=== PATIENT | female | born 1965 | race Asian ===

== ENCOUNTER 2020-07-26 15:52 | Emergency (ER) | payer SELFPAY ==
--- NOTE | 2020-07-26 16:21 | ER Document Report ---
ED Medical Screen (RME) - General Chief Complaint: Vaginal Bleeding Stated Complaint: VAGINAL BLEEDING Time Seen by Provider: 07/26/20 16:15 - HPI Notes: 07/26/20 16:20 55-year-old female to the emergency department with daughter with complaints of vaginal bleeding for 3 days with pelvic pain. This is happened once before. No fevers or chills. Patient is Mandarin speaking only. I performed a brief medical screening exam on the patient determined that the patient needs further evaluation and management by main side provider. I have placed initial orders to help expedite care. - Related Data Allergies/Adverse Reactions: No Known Allergies Allergy (Verified 07/26/20 16:15) Past Medical History - Social History Frequency of alcohol use: None Drug Abuse: None Physical Exam - Vital signs Vitals: Temp Pulse Resp BP Pulse Ox 99.3 F 96 18 131/66 H 96 07/26/20 15:59 07/26/20 15:59 07/26/20 15:59 07/26/20 15:59 07/26/20 15:59 Course - Vital Signs Vital signs: Temp Pulse Resp BP Pulse Ox 99.3 F 96 18 131/66 H 96 07/26/20 15:59 07/26/20 15:59 07/26/20 15:59 07/26/20 15:59 07/26/20 15:59
[2020-07-26 17:07] LABS: APPEARANCE,URINE CLEAR; BILIRUBIN,URINE NEGATIVE (NEGATIVE); COLOR,URINE YELLOW; GLUCOSE, URINE NEGATIVE (NEGATIVE); KETONES,URINE NEGATIVE (NEGATIVE); LEUKOCYTE ESTERASE,URINE NEGATIVE (NEGATIVE); NITRITE,URINE NEGATIVE (NEGATIVE); PROTEIN,URINE NEGATIVE (NEGATIVE); URINE SPECIFIC GRAVITY 1.019; UROBILINOGEN,URINE NEGATIVE mg/dL (<2.0)
[2020-07-26 17:44] LABS: HEMATOCRIT 31.3 % (36.0-47.0); HEMOGLOBIN 11.1 g/dL (12.0-15.5); MEAN CORPUSCULAR HEMOGLOBIN 32.5 pg (27.0-33.4); MEAN CORPUSCULAR HGB CONC 35.4 g/dL (32.0-36.0); MEAN CORPUSCULAR VOLUME 92 fl (80-97); PLATELET COUNT 308 10^3/uL (150-450); RED BLOOD COUNT 3.41 10^6/uL (3.72-5.28); RED CELL DISTRIBUTION WIDTH 13.5 % (11.5-14.0)
[2020-07-26 17:52] LABS: ALBUMIN 4.3 g/dL (3.5-5.0); ALKALINE PHOSPHATASE 90 U/L (38-126); ANION GAP 11 (5-19); ASPARTATE AMINO TRANSFERASE 39 U/L (14-36); BILIRUBIN,DIRECT 0.2 mg/dL (0.0-0.4); BILIRUBIN,TOTAL 0.4 mg/dL (0.2-1.3); BLOOD UREA NITROGEN 16 mg/dL (7-20); CARBON DIOXIDE 24 mmol/L (22-30); CHLORIDE 105 mmol/L (98-107); GLUCOSE 119 mg/dL (75-110); POTASSIUM 4.3 mmol/L (3.6-5.0); TOTAL PROTEIN 7.2 g/dL (6.3-8.2)
[2020-07-26 18:11] LABS: ABSOLUTE LYMPHOCYTES# (MANUAL) 1.7 10^3/uL (0.5-4.7); ABSOLUTE MONOCYTES # (MANUAL) 0.3 10^3/uL (0.1-1.4); BASOPHILS % (MANUAL) 0 % (0-2); EOSINOPHILS % (MANUAL) 1 % (0-6); LYMPHOCYTES % (MANUAL) 29 % (13-45); MONOCYTES % (MANUAL) 5 % (3-13); SEGMENTED NEUTROPHILS % (MAN) 65 % (42-78); TOTAL CELLS COUNTED 100
[2020-07-26 18:12] LABS: PLATELET COMMENT ADEQUATE; RBC MORPHOLOGY COMMENT NORMO-CYTIC/CHROMIC
--- NOTE | 2020-07-26 18:49 | ER Document Report ---
ED General - General Chief Complaint: Vaginal Bleeding Stated Complaint: VAGINAL BLEEDING Time Seen by Provider: 07/26/20 16:15 Primary Care Provider: CARLOS WALLER MD [ACTIVE STAFF] - Follow up tomorrow (We will make an appointment to be seen tomorrow if you call at 8 AM) Notes: Patient presents with vaginal bleeding for 1 day with clots. Mild weakness but no faintness or fainting. Has not had this once before but it resolved on its own. Postmenopausal. Is not seen WIRER HELPER has no primary care and is non-Setswana- speaking. Translation via [employer] and professional translation services. No fevers. Positive left lower quadrant pain not taking any meds. - Related Data Allergies/Adverse Reactions: No Known Allergies Allergy (Verified 07/26/20 16:15) Past Medical History - General Information source: Relative - Social History Smoking Status: Never Smoker Frequency of alcohol use: None Drug Abuse: None Family History: None Review of Systems - Review of Systems Notes: REVIEW OF SYSTEMS GEN: Denies fever, chills, weight loss ENT: Denies sore throat, nasal discharge, ear pain EYES: Denies blurry vision, eye pain, discharge CV: Denies chest pain, palpitations, edema RESP: Denies cough, shortness of breath, wheezing GI: Abdominal pain and vaginal bleeding madeline MSK: Denies joint pain/swelling, edema, SKIN: Denies rash, skin lesions LYMPH: Denies swollen glands/lymph nodes NEURO: Denies headache, focal weakness or numbness, dizziness PSYCH: Denies depression, suicidal or homicidal ideation PHYSICAL EXAMINATION General: No acute distress, well-nourished Head: Atraumatic, normocephalic ENT: Mouth normal, oropharynx moist, no exudates or tonsillar enlargement Eyes: Conjunctiva normal, pupils equal, lids normal Neck: No JVD, supple, no guarding CVS: Normal rate, regular rhythm, no murmurs Resp: No resp distress, equal and normal breath sounds bilaterally GI: Nondistended, soft, no tenderness to palpation, no rebound or guarding Ext: No deformities, no edema, normal range of motion in upper and lower ext Back: No CVA or midline TTP Skin: No rash, warm Lymphatic: No lymphadeopathy noted Neuro: Awake, alert. Face symmetric. GCS 15. Physical Exam - Vital signs Vitals: Temp Pulse Resp BP Pulse Ox 99.3 F 96 18 131/66 H 96 07/26/20 15:59 07/26/20 15:59 07/26/20 15:59 07/26/20 15:59 07/26/20 15:59 Course - Re-evaluation Re-evalutation: 07/26/20 19:13 Vaginal bleeding postmenopausal. Hemoglobin is 11 with no old. Not tachycardic looks well minimal tenderness Ultrasound shows fibroid Discussed [place]. Discussed with Dr. Waller on the phone who will see the patient in the office tomorrow. Discussed with patient and family via translation services I have discussed with the patient there likely diagnosis, aftercare plan, follow-up plans and my usual and customary return precautions. They verbalized understanding of this. - Vital Signs Vital signs: Temp Pulse Resp BP Pulse Ox 99.3 F 82 16 132/74 H 95 07/26/20 19:08 07/26/20 19:08 07/26/20 19:08 07/26/20 19:08 07/26/20 19:08 - Laboratory Result Diagrams: 07/26/20 17:00 07/26/20 17:00 Laboratory results interpreted by me: 07/26/20 07/26/20 07/26/20 16:30 17:00 17:00 RBC 3.41 L Hgb 11.1 L Hct 31.3 L Glucose 119 H AST 39 H Urine Blood LARGE H Discharge - Discharge Clinical Impression: Postmenopausal vaginal bleeding Condition: Good Disposition: HOME, SELF-CARE Instructions: Vaginal Bleeding ([facility]) Additional Instructions: Please buy maxipads. If your mother soaked through 3 pads in 3 hours return to ER. If she gets faint or faints return to the ER. Please give her 3 ibuprofen tablets equal 600 mg every 6 hours. Please call CUSTOMER CONTACT REPRESENTATIVE tomorrow morning they will get you in for an appointment. Referrals: CARLOS WALLER MD [ACTIVE STAFF] - Follow up tomorrow (We will make an appointment to be seen tomorrow if you call at 8 AM)
[2020-07-26] MEDS ORDERED: IBUPROFEN 600 MG TABLET PO ONE (19:02)
[2020-07-26 19:09] VITALS: BP 132/74
--- NOTE | 2020-07-26 19:28 | RADIOLOGY REPORT (SQ) ---
EXAM DESCRIPTION: U/S NON OB PEL TV W/DOPPLER IMAGES COMPLETED DATE/TIME: 07/26/2020 7:09 pm REASON FOR STUDY: pelvic pain, vaginal bleeding COMPARISON: None. TECHNIQUE: Dynamic and static grayscale images acquired of the pelvis via transvaginal approach and recorded on PACS. Additional selected color Doppler and spectral images recorded. LIMITATIONS: None. FINDINGS: UTERUS: Multi fibroid uterus, the largest of which measures on the order of 7.4 x 4.8 x 5. 0 cm. ENDOMETRIAL STRIPE: No focal or generalized thickening. No masses. CERVIX: No nabothian cysts. A cervical fibroid may be present. RIGHT OVARY AND DOPPLER: Normal size. No worrisome masses. Normal arterial vascular flow without evid ence for torsion. LEFT OVARY AND DOPPLER: Ovary not visualized. FREE FLUID: None noted. OTHER: No other significant finding. MEASUREMENTS: UTERUS: 10.9 x 4.5 x 5.6 cm ENDOMETRIAL STRIPE: 1.3 cm RIGHT OVARY: 2.7 x 2.2 x 2.1 cm LEFT OVARY: Not visualized. IMPRESSION: 1. Limited examination demonstrating an enlarged multi fibroid uterus with cervical mas s possibly on the basis of cervical fibroid. Recommend routine magnetic resonance imaging for improv ed characterization. 2. LMP not provided. If postmenopausal: uniform thickening of the endometrium; recommend endometri al biopsy. 3. The left ovary is not visualized on today's examination; the right ovary is grossly unremarkable. TECHNICAL DOCUMENTATION: JOB ID: [id number] 2010 [employer]- All Rights Reserved Rev-04/05 Reading location - IP/workstation name: [email or web address]
== END 2020-07-26 19:14 | disposition home or self-care (01) ==
LOC: ER 15:52
DX: N95.0 Postmenopausal bleeding (principal); R53.1 Weakness
CPT/HCPCS: 36415; 76830; 80053; 81001; 85025; 86850; 86900; 86901; 93976; 99284

== ENCOUNTER 2020-07-27 12:04 | Emergency (ER) | payer SELFPAY ==
[2020-07-27] MEDS ORDERED: NORMAL SALINE 1000 ML 1,000 ML IV ONE ×2 (12:40→15:18)
[2020-07-27] MEDS ORDERED: ACETAMINOPHEN 325 MG TABLET PO ONE (12:41)
--- NOTE | 2020-07-27 12:44 | ER Document Report ---
ED Medical Screen (RME) - General Chief Complaint: Abnormal Lab Results Stated Complaint: ABNORMAL LABS Time Seen by Provider: 07/27/20 12:36 Mode of Arrival: Wheelchair Information source: Relative Notes: 55-year-old female presented to ED for vaginal bleeding postmenopausal. She states she is soaking at least 8 pad an hour. She went over the [facility] follow-up for yesterday's visit. [facility] care packed her vaginal cavity with gauze and sent her to the emergency room. She there is a note that states they have also called Robb Toth and Dr. Gregory. She states she is in a lot of pain but would only agree to some Tylenol at this time. Does not speak Danish her daughter is with her speaking for her. She will need the [facility] for a full exam. She was seen in the emergency room yesterday by Dr. Resendiz and followed up with [facility] as per instructions. I have greeted and performed a rapid initial assessment of this patient. A comprehensive ED assessment and evaluation of the patient, analysis of test results and completion of medical decision making process will be conducted by an additional ED providers. - Related Data Allergies/Adverse Reactions: No Known Allergies Allergy (Verified 07/27/20 12:38) Physical Exam - Vital signs Vitals: Temp Pulse Resp BP Pulse Ox 98.4 F 86 18 100/66 99 07/27/20 12:19 07/27/20 12:19 07/27/20 12:07/27/20 12:19 07/27/20 12:19 Course - Vital Signs Vital signs: Temp Pulse Resp BP Pulse Ox 98.4 F 86 18 100/66 99 07/27/20 12:19 07/27/20 12:19 07/27/20 12:19 07/27/20 12:19 07/27/20 12:19
[2020-07-27 13:32] LABS: ABSOLUTE LYMPHOCYTES (AUTO) 1.2 10^3/uL (0.5-4.7); ABSOLUTE MONOCYTES (AUTO) 0.3 10^3/uL (0.1-1.4); ABSOLUTE NEUT (AUTO) 5.4 10^3/uL (1.7-8.2); BASOPHILS % (AUTO) 0.6 % (0-2); EOSINOPHILS % (AUTO) 0.7 % (0-6); HEMATOCRIT 25.2 % (36.0-47.0); LYMPHOCYTES % (AUTO) 16.7 % (13-45); MEAN CORPUSCULAR HGB CONC 34.3 g/dL (32.0-36.0); MEAN CORPUSCULAR VOLUME 90 fl (80-97); MONOCYTES % (AUTO) 4.6 % (3-13); PLATELET COUNT 231 10^3/uL (150-450); RED BLOOD COUNT 2.79 10^6/uL (3.72-5.28); RED CELL DISTRIBUTION WIDTH 13.5 % (11.5-14.0); SEGMENTED NEUTROPHILS % (AUTO) 77.4 % (42-78); TOTAL CELLS COUNTED % (AUTO) 100 %
[2020-07-27 13:33] LABS: HEMOGLOBIN 8.6 g/dL (12.0-15.5)
[2020-07-27 13:56] LABS: ALBUMIN 3.7 g/dL (3.5-5.0); ALKALINE PHOSPHATASE 66 U/L (38-126); ANION GAP 7 (5-19); ASPARTATE AMINO TRANSFERASE 33 U/L (14-36); BILIRUBIN,DIRECT 0.1 mg/dL (0.0-0.4); BILIRUBIN,TOTAL 0.4 mg/dL (0.2-1.3); BLOOD UREA NITROGEN 15 mg/dL (7-20); CALCIUM 8.5 mg/dL (8.4-10.2); CARBON DIOXIDE 25 mmol/L (22-30); CHLORIDE 106 mmol/L (98-107); GLUCOSE 126 mg/dL (75-110); POTASSIUM 4.4 mmol/L (3.6-5.0); TOTAL PROTEIN 6.2 g/dL (6.3-8.2)
--- NOTE | 2020-07-27 15:00 | ER Document Report ---
ED General - General Chief Complaint: Vaginal Bleeding Stated Complaint: ABNORMAL LABS Time Seen by Provider: 07/27/20 12:36 Mode of Arrival: Wheelchair - HPI Notes: 55-year-old female no significant past medical history menopausal x5 years presents with vaginal bleeding and lower pelvic pain. Patient states that she had low volume vaginal bleeding few weeks ago that resolved and then came to the ED yesterday after having significant episode of heavy bleeding and had lab work that showed hemoglobin of 11 and vaginal bleeding improved. Patient states she has been having approximately 1 pad per hour bleeding since yesterday and patient followed up today at [facility] and pelvic exam was highly concerning for cervical cancer. Patient had vaginal packing placed and was referred to ED. Patient felt lightheadedness before that has since resolved. Patient denies any syncope, bleeding diatheses, anticoagulation, fever, discharge, prior episodes, known cancer history, trauma. Offered to have strategic marketing manager via [employer] but patient declined preferring for her daughter to interpret. Patient only Mandarin speaking. - Related Data Allergies/Adverse Reactions: No Known Allergies Allergy (Verified 07/27/20 12:38) Home Medications: denies Past Medical History - General Information source: Patient, Relative - Social History Smoking Status: Never Smoker Chew tobacco use (# tins/day): No Frequency of alcohol use: None Drug Abuse: None Family History: None Patient has homicidal ideation: No Review of Systems - Review of Systems Notes: REVIEW OF SYSTEMS: CONSTITUTIONAL : Denies fever, chills, or sweats. EENT: Denies recent cold/sinus symptoms, denies throat pain CARDIOVASCULAR: Denies chest pain, PRASHANT RESPIRATORY: Denies cough, denies shortness of breath. GASTROINTESTINAL: Denies abdominal pain, nausea/vomiting. GENITOURINARY: Denies difficulty urinating, painful urination. FEMALE GENITOURINARY: + abnormal vaginal bleeding, -vaginal discharge. MUSCULOSKELETAL: Denies neck pain, back pain. SKIN: Denies rash or skin lesions. HEMATOLOGIC : Denies easy bruising or bleeding. LYMPHATIC: Denies swollen, enlarged glands. NEUROLOGICAL: Denies headache, denies change in gait. PSYCHIATRIC: Denies anxiety or stress or depression. Physical Exam - Vital signs Vitals: Temp Pulse Resp BP Pulse Ox 98.4 F 86 18 100/66 99 07/27/20 12:19 07/27/20 12:19 07/27/20 12:19 07/27/20 12:19 07/27/20 12:19 - Notes Notes: PHYSICAL EXAMINATION: GENERAL: Well-appearing, well-nourished middle-aged woman sitting up in stretcher in no acute distress. HEAD: Atraumatic, normocephalic. EYES: Pupils equal round and appropriate constriction, sclera anicteric, conjunctiva are normal. ENT: nares patent, moist mucous membranes. NECK: Normal range of motion, supple without lymphadenopathy LUNGS: Breath sounds clear to auscultation bilaterally and equal. No wheezes rales or rhonchi. HEART: Regular rate and rhythm without murmurs ABDOMEN: Soft, nontender, no guarding, no masses, no CVAT PELVIC: Not performed by myself as PUMPING SUPERVISOR Dr. Gregory performed a pelvic exam in the ED during this visit and communicated findings to me of a large cervical lesion with an eschar without any active bleeding EXTREMITIES: Normal range of motion, no pitting or edema. No cyanosis. NEUROLOGICAL: Awake, alert, conversing appropriately, moves all extremities spontaneously. PSYCH: Normal mood, normal affect. SKIN: Warm, Dry, normal turgor, no rashes or lesions noted. Course - Re-evaluation Re-evalutation: 07/27/20 15:00 Patient with significant vaginal bleeding with cervical lesion, highly concerning for cervical cancer. Patient's bleeding resolved from ED. Discussed with Dr. Gregory who is evaluating patient. Patient currently well-appearing, vital signs normal, no systemic symptoms of anemia, no current indication to transfuse. Will continue to monitor pending FULFILLMENT SPECIALIST eval 07/27/20 16:59 Patient without any bleeding in the ED. Patient examined by Dr. Gregory saw hemostatic eschar over cervical lesion consistent with Dr. Laura's outpatient concern for cervical cancer. As patient has been hemostatic throughout this ED visit and still above range for transfusion and patient patient symptoms of nausea without vomiting, pelvic pain, and generalized weakness have also resolved patient is appropriate for outpatient follow-up with vice president sales and marketing oncologist. Dr. Gregory spoke to Dr. Flores who can see patient in her office this Sunday. I confirmed the patient's best contact number which is incorrectly recorded as [phone] area code and should be [phone], asked nurse to correct this in chart. I gave the correct contact number to Dr. Gregory who is in communication with Dr. Flores. Will also give patient any emesis contact information. I gave patient and daughter extensive return to ED precautions for acute bleeding or any worsening symptoms which they demonstrated understanding of. I obtained CT chest on given pelvis as Dr. Flores requested this to expedite patient's outpatient follow-up care. Packing was removed by Dr. Gregory. Gave patient printout of all imaging and blood results from today and CD of imaging. Again offered strategic marketing manager services which patient declined. Patient's daughter informed patient of all of these findings and she demonstrated understanding of them. Informed patient and daughter of finding of lymph nodes on CT. patient ready for discharge. - Vital Signs Vital signs: Temp Pulse Resp BP Pulse Ox 98.4 F 86 18 129/76 H 94 07/27/20 12:19 07/27/20 12:19 07/27/20 12:19 07/27/20 17:00 07/27/20 17:00 - Laboratory Result Diagrams: 07/27/20 12:50 07/27/20 12:50 Laboratory results interpreted by me: 07/27/20 07/27/20 12:50 12:50 RBC 2.79 L Hgb 8.6 L D Hct 25.2 L Glucose 126 H Total Protein 6.2 L Discharge - Discharge Clinical Impression: Vaginal bleeding, Cervical mass Disposition: HOME, SELF-CARE Additional Instructions: Vaginal Bleeding You are having an episode of abnormal bleeding that is very likely due to cervical cancer. You must follow-up with the vice president sales and marketing oncologist on Sunday without fail. If you do not hear from Dr. Flores' office tomorrow call them and inform them that Dr. Flores plans to see you on Sunday and that you were evaluated in the ED by Dr. Gregory. If you have any vomiting and unable to keep down fluids, worsening pain, bleeding 1 pad per hour, dizziness, chest pain, fainting, fever, discharge, or any other worsening or alarming symptoms return to the emergency department immediately. Bring all copies of your results to your follow-up appointment Prescriptions: Tramadol HCl [Ultram 50 mg Tablet] 50 mg PO Q6HP PRN #6 tab PRN Reason: Severe Pain
[2020-07-27] MEDS ORDERED: ONDANSETRON HCL INJ/PF 4 MG/2 ML SDV IV ONE (15:18)
--- NOTE | 2020-07-27 16:14 | RADIOLOGY REPORT (SQ) ---
EXAM DESCRIPTION: CT CHEST WITH IMAGES COMPLETED DATE/TIME: 07/27/2020 4:01 pm REASON FOR STUDY: cervical cancer staging COMPARISON: None. TECHNIQUE: CT scan of the chest performed using helical scanning technique with dynamic intravenous contrast injection. Images reviewed with lung, soft tissue and bone windows. Reconstructed coronal and sagittal MPR and MIP images reviewed. All images stored on PACS. All CT scanners at this facility use dose modulation, iterative reconstruction, and/or weight based d osing when appropriate to reduce radiation dose to as low as reasonably achievable (ALARA). [facility]: Dose Right [facility]: CareDose [facility]: Dose Right [facility]: Teradose 4D [facility]: QingKe RENAL FUNCTION: GFR > 60. RADIATION DOSE: CT Rad equipment meets quality standard of care and radiation dose reduction techniq ues were employed. CTDIvol: 6.0 - 10.4 mGy. DLP: 1177 mGy-cm. . LIMITATIONS: None. FINDINGS: LUNGS AND PLEURA: No opacities, nodules, masses. No pneumothorax. No effusions. HILAR AND MEDIASTINAL STRUCTURES: No identified masses or abnormal nodes. HEART AND VASCULAR STRUCTURES: No aneurysm or dissection. No central pulmonary emboli. No pericardi al effusion. HARDWARE: None in the chest. UPPER ABDOMEN: See separate report of the CT of the abdomen. THYROID AND OTHER SOFT TISSUES: No masses. No adenopathy. BONES: No significant finding. OTHER: No other significant finding. IMPRESSION: No evidence of metastatic disease. TECHNICAL DOCUMENTATION: JOB ID: [id number] Quality ID # [id number]: Final reports with documentation of one or more dose reduction techniques (e.g., Au tomated exposure control, adjustment of the mA and/or kV according to patient size, use of iterative reconstruction technique) 2010 [employer]- All Rights Reserved Reading location - IP/workstation name: [email or web address]
--- NOTE | 2020-07-27 16:20 | RADIOLOGY REPORT (SQ) ---
EXAM DESCRIPTION: CT ABD/PELVIS WITH IV ONLY IMAGES COMPLETED DATE/TIME: 07/27/2020 4:01 pm REASON FOR STUDY: cervical cancer staging COMPARISON: None. TECHNIQUE: CT scan of the abdomen and pelvis performed using helical scanning technique with dynamic intravenous contrast injection. No oral contrast. Images reviewed with lung, soft tissue, and bone windows. Reconstructed coronal and sagittal MPR images reviewed. Delayed images were not acquired. Al l images stored on PACS. All CT scanners at this facility use dose modulation, iterative reconstruction, and/or weight based d osing when appropriate to reduce radiation dose to as low as reasonably achievable (ALARA). [facility]: Dose Right [facility]: CareDose [facility]: Dose Right [facility]: Teradose 4D [facility]: Payveris CONTRAST TYPE AND DOSE: contrast/concentration: Isovue 350.00 mmol/ml; Total Contrast Delivered: 78. 0 ml; Total Saline Delivered: 21.7 ml RENAL FUNCTION: GFR > 60. RADIATION DOSE: . LIMITATIONS: None. FINDINGS: LOWER CHEST: See separate report of the CT of the chest. LIVER: Normal size. Mild steatosis. No masses. No dilated ducts. SPLEEN: Normal size. No focal lesions. PANCREAS: No masses. No significant calcifications. No adjacent inflammation or peripancreatic fluid collections. Pancreatic duct not dilated. GALLBLADDER: No identified stones by CT criteria. No inflammatory changes to suggest cholecystitis. ADRENAL GLANDS: No significant masses or asymmetry. RIGHT KIDNEY AND URETER: No solid masses. No significant calcifications. No hydronephrosis or hyd roureter. LEFT KIDNEY AND URETER: No solid masses. No significant calcifications. No hydronephrosis or hydr oureter. AORTA AND VESSELS: No aneurysm. No dissection. Renal arteries, SMA, celiac without stenosis. RETROPERITONEUM: No retroperitoneal adenopathy, hemorrhage or masses. BOWEL AND PERITONEAL CAVITY: No masses or inflammatory changes. No free fluid or peritoneal masses. APPENDIX: Not visualized. PELVIS: Uterine fibroids. Small bilateral external iliac chain nodes, largest on the left 11 x 8 mm. No bulky pelvic adenopathy. ABDOMINAL WALL: No masses. No hernias. BONES: No significant or acute findings. OTHER: No other significant finding. IMPRESSION: Small pelvic lymph nodes. No bulky adenopathy. TECHNICAL DOCUMENTATION: JOB ID: [id number] Quality ID # [id number]: Final reports with documentation of one or more dose reduction techniques (e.g., Au tomated exposure control, adjustment of the mA and/or kV according to patient size, use of iterative reconstruction technique) 2010 [employer]- All Rights Reserved Reading location - IP/workstation name: [email or web address]
[2020-07-27 17:09] VITALS: BP 129/76
== END 2020-07-27 18:02 | disposition home or self-care (01) ==
LOC: ER 12:04
DX: N93.9 Abnormal uterine and vaginal bleeding, unspecified (principal); N88.9 Noninflammatory disorder of cervix uteri, unspecified; R10.2 Pelvic and perineal pain; R11.0 Nausea; R53.1 Weakness
CPT/HCPCS: 99285; 96361; 96374; 86900; 86901; 36415; 86850; 85025; 80053; 71260; 74177; J2405; J7030

== ENCOUNTER 2020-08-01 16:04 | Emergency (ER) | payer SELFPAY ==
[2020-08-01] MEDS ORDERED: MAG HYDROX/AL HYDROX/SIMETH SUSP 30 ML UDCUP PO ONE (17:14)
[2020-08-01] MEDS ORDERED: METOCLOPRAMIDE HCL ORAL SOLN 10 MG/10 ML UDCUP PO ONE (17:14)
[2020-08-01] MEDS ORDERED: LIDOCAINE 2% VISCOUS SOLN 15 ML UDCUP PO ONE (17:14)
--- NOTE | 2020-08-01 17:27 | ER Document Report ---
ED General - General Chief Complaint: Abdominal Pain Stated Complaint: EPIGASTRIC PAIN Time Seen by Provider: 08/01/20 16:47 Primary Care Provider: NETO GRAHAM MD [Primary Care Provider] - Follow up as needed Information source: Patient, Relative - HPI Notes: Patient is a 55-year-old female who presents with substernal chest pain and epigastric pain. Patient's pain began a couple of days ago and she describes it as a burning pain that is exacerbated by eating. She also reports LLQ abdominal tenderness that radiates to her left flank with one episode of diarrhea this morning. She was seen in the ED last week for vaginal bleeding. She was referred to [facility] and was diagnosed with Stage II Cervical Cancer two days ago. She continues to have vaginal bleeding but reports it to be a small amount. She reports STORM, dizziness and fatigue that has been going on for the past week. She denies SOB, nausea, vomiting, fever, bowel and urinary symptoms. Patient denies any medical hx and surgical hx. Patient does not smoke and drinks occasionally. - Related Data Allergies/Adverse Reactions: No Known Allergies Allergy (Verified 08/01/20 16:44) Past Medical History - General Information source: Patient, Relative - Social History Smoking Status: Never Smoker Frequency of alcohol use: Occasional Family History: None Patient has homicidal ideation: No Review of Systems - Review of Systems Constitutional: See HPI EENT: No symptoms reported Cardiovascular: See HPI Respiratory: See HPI Gastrointestinal: See HPI Genitourinary: No symptoms reported Female Genitourinary: See HPI Musculoskeletal: No symptoms reported Skin: No symptoms reported Hematologic/Lymphatic: No symptoms reported Neurological/Psychological: No symptoms reported Physical Exam - Vital signs Vitals: Temp Pulse Resp BP Pulse Ox 98.4 F 82 18 103/54 L 98 08/01/20 16:09 08/01/20 16:09 08/01/20 16:08/01/20 16:08/01/20 16:09 - Notes Notes: PHYSICAL EXAMINATION: VITALS: Vitals reviewed and within normal limits. GENERAL: Well-appearing, well-nourished and in no acute distress. HEAD: Atraumatic, normocephalic. EYES: Pupils equal round and reactive to light, extraocular movements intact, sclera anicteric, conjunctiva are normal. ENT: nares patent, oropharynx clear without exudates. Moist mucous membranes. NECK: Normal range of motion, supple without lymphadenopathy. LUNGS: Breath sounds clear to auscultation bilaterally and equal. No wheezes rales or rhonchi. HEART: Regular rate and rhythm without murmurs. ABDOMEN: Soft abdomen with normoactive bowel sounds. Mild tenderness to the epigastric region and LLQ. No guarding, no rebound. No masses appreciated. EXTREMITIES: Normal range of motion, no pitting or edema. No cyanosis. NEUROLOGICAL: No focal neurological deficits. Moves all extremities spontaneously and on command. PSYCH: Normal mood, normal affect. SKIN: Warm, Dry, normal turgor, no rashes or lesions noted. Course - Re-evaluation Re-evalutation: Patient is a 55 y/o female and presents for burning chest, epigastric and LLQ abdominal pain that began a couple of days ago. Patient has a recent diagnosis of Stage II cervical cancer. Vital signs normal. On exam, patient is diffusely tender to her abdomen. CBC shows HGB of 8.0 which is minimally changed from her last HGB on 07/27/2020 which was 8.6. UA shows small blood and trace leukocyte esterase. Urine culture ordered. Labwork otherwise unremarkable. CXR normal and US of the abdomen shows mild right hydronephrosis with no renal calculi visualized. Results discussed with patient and daughter. Instructed the patient to take ibuprofen and tylenol for STORM relief. Urged the importance of having the PET scan done as ordered by her gynecologic oncologist and following up as scheduled. Return precautions given. - Vital Signs Vital signs: Temp Pulse Resp BP Pulse Ox 98.4 F 82 18 103/54 L 98 08/01/20 16:09 08/01/20 16:09 08/01/20 16:09 08/01/20 16:09 08/01/20 16:09 - Laboratory Result Diagrams: 08/01/20 17:00 08/01/20 17:00 Laboratory results interpreted by me: 08/01/20 08/01/20 08/01/20 17:00 17:00 18:49 RBC 2.60 L Hgb 8.0 L Hct 24.2 L RDW 14.2 H Glucose 119 H Urine Blood SMALL H Ur Leukocyte Esterase TRACE H - Diagnostic Test Radiology reviewed: Reports reviewed Radiology results interpreted by me: Abdomen Ultrasound 08/01/20 17:10 IMPRESSION: Mild right hydronephrosis without visualized renal calculi. Chest X-Ray 08/01/20 17:14 IMPRESSION: NO ACUTE RADIOGRAPHIC FINDING IN THE CHEST. - EKG Interpretation by Me Additional EKG results interpreted by me: Normal sinus rhythm with a rate of 74. QTc 444. Normal axis. No T wave inversions or ST segment changes in consecutive leads. Discharge - Discharge Clinical Impression: Abdominal pain Qualifiers: Abdominal location: generalized Qualified Code(s): R10.84 - Generalized abdominal pain Headache Qualifiers: Headache type: unspecified Headache chronicity pattern: acute headache Intractability: not intractable Qualified Code(s): R51 - Headache Anemia Qualifiers: Anemia type: unspecified type Qualified Code(s): D64.9 - Anemia, unspecified Cervical cancer Qualifiers: Malignant neoplasm of cervix location: unspecified location Qualified Code(s): C53.9 - Malignant neoplasm of cervix uteri, unspecified Chest pain Qualifiers: Chest pain type: unspecified Qualified Code(s): R07.9 - Chest pain, unspecified Condition: Stable Disposition: HOME, SELF-CARE Additional Instructions: Have PET Scan as ordered for your cervical cancer. Follow up with primary care concerning your cervical cancer and anemia. Take ibuprofen and tylenol for headache. Drink plenty of fluids and well-balanced meals. Return if increased chest pain, or vaginal bleeding or if you become short of breath, have persistent vomiting, confusion or dizziness. Headache You have been seen in the Emergency Department (ED) for a headache. Please use Tylenol (acetaminophen) or Motrin (ibuprofen) as needed for symptoms, but only as written on the box. As we have discussed, please follow up with your primary care doctor as soon as possible regarding today's ED visit and your headache symptoms. Call your doctor or return to the ED if you have a worsening headache, sudden and severe headache, confusion, slurred speech, facial droop, weakness or numbness in any arm or leg, extreme fatigue, or other symptoms that concern you.Reflux Disease (GERD) Gastro-Esophageal Reflux Disease (GERD) is caused by stomach acid refluxing back up into the esophagus. The valve at the end of the esophagus may be weak. This is common in persons with a hiatal hernia. GERD symptoms can include indigestion, chest pain, heartburn, or food "sticking." Certain foods, alcohol, and aspirin can make GERD worse. Treatment depends on the severity. Usually, antacids or acid-suppressing medicines are used. When the esophagus is acutely inflamed, the physician will often prescribe membrane-protective drugs such as Carafate. Some patients benefit from medication such as Reglan that tightens the valve at the top of the stomach. Avoid those foods that bring on your symptoms. For many people, these foods are coffee, chocolate, onions, garlic, and carbonated drinks. Don't use alcohol, aspirin, caffeine, or tobacco. Don't eat late at night -- within 4 hours of bedtime. Don't over-eat. If necessary, elevate the head of your bed about 4 inches so that stomach acid will not roll up into your esophagus. Call the doctor if you develop severe chest pain, inability to swallow fluids, fever, or worsening symptoms. Referrals: NETO GRAHAM MD [Primary Care Provider] - Follow up as needed
[2020-08-01 17:40] LABS: ABSOLUTE EOSINOPHILS # (AUTO) 0.1 10^3/uL (0.0-0.6); ABSOLUTE MONOCYTES (AUTO) 0.5 10^3/uL (0.1-1.4); BASOPHILS % (AUTO) 0.9 % (0-2); EOSINOPHILS % (AUTO) 2.9 % (0-6); HEMATOCRIT 24.2 % (36.0-47.0); LYMPHOCYTES % (AUTO) 20.8 % (13-45); MEAN CORPUSCULAR HGB CONC 33.2 g/dL (32.0-36.0); MEAN CORPUSCULAR VOLUME 93 fl (80-97); MONOCYTES % (AUTO) 10.6 % (3-13); PLATELET COUNT 338 10^3/uL (150-450); RED CELL DISTRIBUTION WIDTH 14.2 % (11.5-14.0); SEGMENTED NEUTROPHILS % (AUTO) 64.8 % (42-78); TOTAL CELLS COUNTED % (AUTO) 100 %; WHITE BLOOD COUNT 4.6 10^3/uL (4.0-10.5)
[2020-08-01 17:46] LABS: ALBUMIN 3.8 g/dL (3.5-5.0); ALKALINE PHOSPHATASE 64 U/L (38-126); ANION GAP 7 (5-19); ASPARTATE AMINO TRANSFERASE 35 U/L (14-36); BILIRUBIN,DIRECT 0.3 mg/dL (0.0-0.4); BILIRUBIN,TOTAL 0.3 mg/dL (0.2-1.3); BLOOD UREA NITROGEN 16 mg/dL (7-20); CALCIUM 8.4 mg/dL (8.4-10.2); CARBON DIOXIDE 26 mmol/L (22-30); CHLORIDE 107 mmol/L (98-107); GLUCOSE 119 mg/dL (75-110); POTASSIUM 4.5 mmol/L (3.6-5.0); TOTAL PROTEIN 6.4 g/dL (6.3-8.2)
--- NOTE | 2020-08-01 17:55 | RADIOLOGY REPORT (SQ) ---
EXAM DESCRIPTION: CHEST SINGLE VIEW IMAGES COMPLETED DATE/TIME: 08/01/2020 5:41 pm REASON FOR STUDY: epigatric pain COMPARISON: None. EXAM PARAMETERS: NUMBER OF VIEWS: One view. TECHNIQUE: Single frontal radiographic view of the chest acquired. RADIATION DOSE: NA LIMITATIONS: None. FINDINGS: LUNGS AND PLEURA: No opacities, masses or pneumothorax. No pleural effusion. MEDIASTINUM AND HILAR STRUCTURES: No masses. Contour normal. HEART AND VASCULAR STRUCTURES: Heart normal in size. Normal vasculature. BONES: No acute findings. HARDWARE: None in the chest. OTHER: No other significant finding. IMPRESSION: NO ACUTE RADIOGRAPHIC FINDING IN THE CHEST. TECHNICAL DOCUMENTATION: JOB ID: [id number] 2010 [employer]- All Rights Reserved Reading location - IP/workstation name: [email or web address]
--- NOTE | 2020-08-01 18:25 | RADIOLOGY REPORT (SQ) ---
EXAM DESCRIPTION: U/S ABDOMEN LIMITED W/O DOP IMAGES COMPLETED DATE/TIME: 08/01/2020 6:12 pm REASON FOR STUDY: epigastric pain COMPARISON: None. TECHNIQUE: Dynamic and static grayscale images acquired of the abdomen and recorded on PACS. Additio nal selected color Doppler and spectral images recorded. LIMITATIONS: None. FINDINGS: PANCREAS: No masses. Visualized pancreatic duct normal caliber. LIVER: No masses. Echotexture normal. LIVER VASCULATURE: Normal directional flow of the main portal vein and hepatic veins. GALLBLADDER: Contracted. Patient not fasting. ULTRASOUND-DETECTED DUNN'S SIGN: Negative. INTRAHEPATIC DUCTS AND COMMON DUCT: CBD and intrahepatic ducts normal caliber. No filling defects. INFERIOR VENA CAVA: Normal flow. AORTA: No aneurysm. RIGHT KIDNEY: Dilated renal pelvis without visualized renal calculi. PERITONEAL AND RIGHT PLEURAL SPACE: No ascites or effusions. OTHER: No other significant findings. IMPRESSION: Mild right hydronephrosis without visualized renal calculi. TECHNICAL DOCUMENTATION: JOB ID: [id number] 2010 [employer]- All Rights Reserved Reading location - IP/workstation name: [email or web address]
[2020-08-01 19:06] LABS: APPEARANCE,URINE CLEAR; BILIRUBIN,URINE NEGATIVE (NEGATIVE); COLOR,URINE STRAW; GLUCOSE, URINE NEGATIVE (NEGATIVE); KETONES,URINE NEGATIVE (NEGATIVE); LEUKOCYTE ESTERASE,URINE TRACE (NEGATIVE); NITRITE,URINE NEGATIVE (NEGATIVE); PROTEIN,URINE NEGATIVE (NEGATIVE); URINE SPECIFIC GRAVITY 1.009; UROBILINOGEN,URINE NEGATIVE mg/dL (<2.0)
[2020-08-01 20:11] VITALS: BP 129/71
--- NOTE | 2020-08-02 02:22 | EKG REPORT ---
SEVERITY:- NORMAL ECG - SINUS RHYTHM : Confirmed by: Jovon Maxwell MD 02-Aug-2020 02:21:30
== END 2020-08-01 20:08 | disposition home or self-care (01) ==
LOC: ER 16:04
DX: R10.13 Epigastric pain (principal); R10.84 Generalized abdominal pain; R51 Headache; R07.9 Chest pain, unspecified; D64.9 Anemia, unspecified; C53.9 Malignant neoplasm of cervix uteri, unspecified
CPT/HCPCS: 93005; 99285; 36415; 87086; 83690; 85025; 87088; 80053; 81001; 84484; 71045; 76705; 93010; J3490; 87186

== ENCOUNTER 2020-08-05 10:04 | Outpatient (CLI) | payer OTHER ==
[2020-08-05] MEDS ORDERED: NORMAL SALINE 1000 ML 1,000 ML IV PRN (10:15)
[2020-08-05 10:22] VITALS: BP 131/59
== END 2020-08-05 11:29 | disposition home or self-care (01) ==
LOC: II 10:04 → 5TH 10:06 → II 11:29
PROVIDERS: ATTEND Internal Medicine
DX: E86.0 Dehydration (principal); C53.0 Malignant neoplasm of endocervix
CPT/HCPCS: 96360

== ENCOUNTER → 2020-08-17 | Outpatient (CLI) | payer OTHER ==
--- NOTE | 2020-08-18 15:04 | RADIOLOGY REPORT (SQ) ---
EXAM DESCRIPTION: PET CT SKULL/THIGH IMAGES COMPLETED DATE/TIME: 08/17/2020 1:34 pm REASON FOR STUDY: C53.9 MALIGNANT NEOPLASM OF CERVIX UTERI, UNSPECIFIED C53.9 MALIGNANT NEOPLASM OF CERVIX UTERI, UNSPECIFIED COMPARISON: Pelvic ultrasound 07/26/2020. CT chest abdomen pelvis 07/27/2020. RADIONUCLIDE AND DOSE: 9.9 mCi F18 FDG The route of agent administration: Intravenous FASTING BLOOD SUGAR: 93 mg/dl CONTRAST TYPE AND DOSE: No CT contrast given. TECHNIQUE: Blood glucose level was verified. Above dose of FDG was injected intravenously. 2-D seg mented attenuation correction images were obtained from the base of the skull to the midthighs. Nonc ontrast CT images were obtained for attenuation correction and fusion with emission images. CT image s were performed without oral or intravenous contrast and are not sensitive for parenchymal lesions. A series of overlapping emission PET images were obtained. Images reviewed and manipulated at [facility] work station by the radiologist. Images stored on PACS. LIMITATIONS: None. FINDINGS: HEAD AND NECK: Artifactual laryngeal uptake due to phonation. CHEST: No areas of abnormal metabolic activity in the chest. ABDOMEN AND PELVIS: There is abnormal uptake 11.4 SUV associated with a mass in the lower uterine seg ment which is distorting the endometrial cavity. There is mild associated inflammatory change. This mass was originally thought to be a fibroid but is suspicious for local invasion of patient's cervic al cancer. 3.3 SUV within 10 mm left internal iliac chain node. PROXIMAL LOWER EXTREMITIES: No areas of abnormal metabolic activity in the soft tissues of the lower extremities. BONES: No abnormal metabolic activity in the visualized skeleton. ADDITIONAL CT FINDINGS: No additional significant findings on the noncontrast CT images. OTHER: Blood pool 1.6 SUV. Liver background 2.0 SUV. IMPRESSION: 1. Local invasion of the lower uterine segment previously thought to be a fibroid. 2. Hypermetabolic left internal iliac chain node. COMMENT: FINDINGS WERE DISCUSSED WITH DR. GRAHAM 08/18/2020. TECHNICAL DOCUMENTATION: JOB ID: [id number] [employer] All Rights Reserved Reading location - IP/workstation name: [email or web address]-
== END ==
LOC: RAD 08-10 08:12
PROVIDERS: ATTEND Obstetrics & Gynecology Gynecologic Oncology
DX: C53.9 Malignant neoplasm of cervix uteri, unspecified (principal)
CPT/HCPCS: 78815; A9552

== ENCOUNTER 2020-08-18 10:43 | Outpatient (CLI) | payer OTHER ==
[~2020-08-18 10:43] MED LIST: CISPLATIN IV PRN; DEXAMETHASONE 10 MG in NS 50 ML IV PRN; FOSAPREPITANT 150 MG in NS 150 ML IV PRN; FUROSEMIDE INJ/PF 20 MG/2 ML SDV IV PRN; NORMAL SALINE 500 ML @ KVO IV PRN; NORMAL SALINE IV PRN; PALONOSETRON 0.25 MG/5 ML VIAL IV PRN
[2020-08-18 11:12] VITALS: BP 116/60
== END 2020-08-18 14:55 | disposition home or self-care (01) ==
LOC: II 10:43 → 5TH 10:47 → II 14:55
PROVIDERS: ATTEND Internal Medicine
DX: Z51.11 Encounter for antineoplastic chemotherapy (principal); C53.0 Malignant neoplasm of endocervix
CPT/HCPCS: 96413; 96367; 96375; J9060; J1940; J7050; J7040; J1100; J1453; J2469

== ENCOUNTER 2020-08-25 10:05 | Outpatient (CLI) | payer OTHER ==
[~2020-08-25 10:05] MED LIST changes: +FERUMOXYTOL (NON-ESRD) 510 MG/NS 100 ML IV PRN
[2020-08-25 10:33] VITALS: BP 132/68
== END 2020-08-25 14:36 | disposition home or self-care (01) ==
LOC: II 10:05 → 5TH 10:07 → II 14:36
PROVIDERS: ATTEND Internal Medicine
DX: Z51.11 Encounter for antineoplastic chemotherapy (principal); C53.0 Malignant neoplasm of endocervix
CPT/HCPCS: 96413; 96367; 96375; Q0138; J9060; J1940; J7050; J7040; J1100; J1453; J2469

== ENCOUNTER 2020-09-01 09:00 | Outpatient (CLI) | payer OTHER ==
[~2020-09-01 09:00] MED LIST changes: -NORMAL SALINE 500 ML @ KVO IV PRN; +NORMAL SALINE 500 ML IV PRN
[2020-09-01 09:35] VITALS: BP 111/66
== END 2020-09-01 14:00 | disposition home or self-care (01) ==
LOC: II 09:00 → 5TH 09:03 → II 14:00
PROVIDERS: ATTEND Internal Medicine
DX: Z51.11 Encounter for antineoplastic chemotherapy (principal); C53.0 Malignant neoplasm of endocervix
CPT/HCPCS: 96413; 96367; 96375; Q0138; J9060; J1940; J7050; J7040; J1100; J1453; J2469

== ENCOUNTER 2020-09-08 09:00 | Outpatient (CLI) | payer OTHER ==
[~2020-09-08 09:00] MED LIST changes: -FERUMOXYTOL (NON-ESRD) 510 MG/NS 100 ML IV PRN; +PALONOSETRON 0.25 MG/5 ML SDV IV PRN; -PALONOSETRON 0.25 MG/5 ML VIAL IV PRN
[2020-09-08] MEDS ORDERED: NORMAL SALINE 1000 ML 1,000 ML IV PRN (09:17)
[2020-09-08 12:30] VITALS: BP 122/67
== END 2020-09-08 14:15 | disposition home or self-care (01) ==
LOC: II 09:00 → 5TH 09:01 → II 14:15
PROVIDERS: ATTEND Internal Medicine
DX: Z51.11 Encounter for antineoplastic chemotherapy (principal); C53.0 Malignant neoplasm of endocervix
CPT/HCPCS: 96413; 96367; 96375; J9060; J1940; J7050; J7040; J1100; J1453; J2469

== ENCOUNTER 2020-09-14 12:35 | Outpatient (CLI) | payer OTHER ==
[2020-09-14] MEDS ORDERED: NORMAL SALINE 1000 ML 2,000 ML IV PRN (12:52)
[2020-09-14 13:48] VITALS: BP 127/70
== END 2020-09-14 16:17 | disposition home or self-care (01) ==
LOC: II 12:35 → 5TH 12:37 → II 16:17
PROVIDERS: ATTEND Internal Medicine
DX: E86.0 Dehydration (principal); C53.0 Malignant neoplasm of endocervix
CPT/HCPCS: 96360; 96361

== ENCOUNTER 2020-09-15 08:59 | Outpatient (CLI) | payer OTHER ==
[~2020-09-15 08:59] MED LIST changes: +NORMAL SALINE 1000 ML 2,000 ML IV PRN; +NORMAL SALINE 1000 ML @ AS DIRECTED IV PRN; -NORMAL SALINE 500 ML IV PRN; -PALONOSETRON 0.25 MG/5 ML SDV IV PRN; +PALONOSETRON 0.25 MG/5 ML VIAL IV PRN
[2020-09-15 09:04] VITALS: BP 120/72
== END 2020-09-15 12:00 | disposition home or self-care (01) ==
LOC: II 08:59 → 5TH 09:01 → II 12:00
PROVIDERS: ATTEND Internal Medicine
DX: E86.0 Dehydration (principal); C53.0 Malignant neoplasm of endocervix
CPT/HCPCS: 96360; 96361; J1100; J1453; J2469; J7050

== ENCOUNTER 2020-09-16 08:56 | Outpatient (CLI) | payer OTHER ==
[~2020-09-16 08:56] MED LIST changes: -CISPLATIN IV PRN; -DEXAMETHASONE 10 MG in NS 50 ML IV PRN; -FOSAPREPITANT 150 MG in NS 150 ML IV PRN; -FUROSEMIDE INJ/PF 20 MG/2 ML SDV IV PRN; -NORMAL SALINE 1000 ML @ AS DIRECTED IV PRN; -NORMAL SALINE IV PRN; -PALONOSETRON 0.25 MG/5 ML VIAL IV PRN
[2020-09-16 09:08] VITALS: BP 140/68
== END 2020-09-16 12:14 | disposition home or self-care (01) ==
LOC: II 08:56 → 5TH 08:59 → II 12:14
PROVIDERS: ATTEND Internal Medicine
DX: E86.0 Dehydration (principal); C53.0 Malignant neoplasm of endocervix
CPT/HCPCS: 96360; 96361

== ENCOUNTER 2020-09-17 08:31 | Outpatient (CLI) | payer OTHER ==
[~2020-09-17 08:31] MED LIST changes: +NORMAL SALINE 1000 ML 1,000 ML IV PRN; -NORMAL SALINE 1000 ML 2,000 ML IV PRN
[2020-09-17 08:53] VITALS: BP 141/65
== END 2020-09-17 12:00 | disposition home or self-care (01) ==
LOC: II 08:31 → 5TH 09:03 → II 12:00
PROVIDERS: ATTEND Internal Medicine
DX: E86.0 Dehydration (principal); C53.0 Malignant neoplasm of endocervix
CPT/HCPCS: 96360; 96361

== ENCOUNTER 2020-09-22 10:11 | Outpatient (CLI) | payer OTHER ==
[~2020-09-22 10:11] MED LIST changes: +CISPLATIN IV PRN; +DEXAMETHASONE 10 MG in NS 50 ML IV PRN; +FOSAPREPITANT 150 MG in NS 150 ML IV PRN; +FUROSEMIDE INJ/PF 20 MG/2 ML SDV IV PRN; +NORMAL SALINE 1000 ML @ AS DIRECTED IV PRN; +NORMAL SALINE IV PRN; +PALONOSETRON 0.25 MG/5 ML VIAL IV PRN
[2020-09-22 10:35] VITALS: BP 121/66
== END 2020-09-22 12:11 | disposition home or self-care (01) ==
LOC: II 10:11 → 5TH 10:30 → II 12:11
PROVIDERS: ATTEND Internal Medicine
DX: E86.0 Dehydration (principal); C53.0 Malignant neoplasm of endocervix
CPT/HCPCS: 96360; 96361; J1100; J1453; J2469; J7050

== ENCOUNTER 2020-10-01 08:17 | Outpatient (CLI) | payer OTHER ==
[~2020-10-01 08:17] MED LIST changes: +CARBOPLATIN IV PRN; -CISPLATIN IV PRN; +DEXAMETH 10 MG/ONDANSETRON 16 MG in NS 50 ML IV PRN; -DEXAMETHASONE 10 MG in NS 50 ML IV PRN; -FOSAPREPITANT 150 MG in NS 150 ML IV PRN; -FUROSEMIDE INJ/PF 20 MG/2 ML SDV IV PRN; -NORMAL SALINE 1000 ML 1,000 ML IV PRN; -NORMAL SALINE 1000 ML @ AS DIRECTED IV PRN; +NORMAL SALINE 250 ML @ KVO IV PRN; -PALONOSETRON 0.25 MG/5 ML VIAL IV PRN
[2020-10-01 08:45] VITALS: BP 134/72
--- OUTSIDE RECORDS SUMMARY | 2020-10-04 09:36 | XMS REPORT ---
:1965 [facility] [address] [place] [address] Care Team Providers Name Role Phone Marquis Rodriguez M.D. Attending Clinician Unavailable Allergies, Adverse Reactions, Alerts This patient has no known allergies or adverse reactions. Medications Ordered Filled Start Stop Current Ordering Indication Dosage Frequency Signature Comments Components Medication Medication Date Date Medication? Clinician (SIG) Name Name Carboplatin 2020-1 Yes 12-01 00:00: 00 Ondansetron 2019-1 Yes HCl 12-01 00:00: 00 Sodium 2019-1 Yes Chloride 12-01 00:00: 00 Carboplatin 2020-1 No 11-27 00:00: 00 Sodium 2020-1 No Chloride 11-27 00:00: 00 Feraheme 2020-1 2020- No 510mg 0-07 09-27 00:00: 00:00 00 :00 Dexamethaso 2020-0 Yes 10mg ne Sodium -30 Phosphate 00:00: 00 Cisplatin 2020-0 2020- No 68mg 08-18 00:00: 00:00 00 :00 Furosemide 2020-0 2020- No 20mg 08-18 00:00: 00:00 00 :00 Hydration 2020-0 2020- No 500mL 500mL NS 08-18 00:00: 00:00 00 :00 Fosaprepita 2020-0 2020- No 150mg nt 08-18 Dimeglumine 00:00: 00:00 00 :00 Palonosetro 2020-0 2020- No .25mg n HCl 08-18 00:00: 00:00 00 :00 ALPRAZolam 2020-0 Yes 1 08-17 00:00: 00 Doxycycline 2020-0 Yes 1 Hyclate 08-17 00:00: 00 Ondansetron 2020-0 Yes 1 HCl 08-17 00:00: 00 Promethazin 2020-0 Yes 1 e HCl 08-17 00:00: 00 traMADol 2019-0 Yes 1 HCl 9- 00:00: 00 Hydration 2020-0 2020- No 1000mL 1000mL NS 9-17 09-22 00:00: 00:00 00 :00 Oxybutynin Yes 1 Chloride traMADol Yes 1 HCl Problems Condition Condition Condition Status Onset Resolution Last Treatin g Comments Name Details Category Date Date Treatment Clinician Date 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1000 % 48.900 0-69.9000 Lymphocytes (test code = Lymphocytes) 0.5000 1.2000-3.2 000 MID (test code = MID) 0.2000 0.1000-1.1000 Neutrophils (test code = Neutrophils) 1.1000 1.5000-6.7 000 RBC (test code = RBC) 3.3800 3.7000-4.9000 HGB (test code = HGB) 10.2000 g/dL 11.2000-18.0000 HCT (test code = HCT) 29.8000 % 34.0000-44.0000 MCV (test code = MCV) 88.0000 fL 80.0000-94.0000 MCH (test code = MCH) 30.1000 pg 27.0000-34.0000 MCHC (test code = MCHC) 34.2000 g/dL 31.5000-36.0000 RDW (test code = RDW) 17.3000 11.0000-18.0000 PLT (test code = PLT) 283.0000 140.0000-440.0000 MPV (test code = MPV) 6.9000 fL 6.8000-10.6000 [id number] 12:48:41 Test Item Value Reference Range Comments Creatinine (test code = Creatinine) 0.7700 mg/dL 0.5000-1.500 0 Cr Clearance (Est) (test code = Cr Clearance 79.7700 75. 0000-115.0000 (Est)) [id number] 12:12:00 Test Item Value Reference Range Comments WBC (test code = WBC) 1.5000 4.0000-10.0000 Lymphocytes % (test code = Lymphocytes %) 29.1000 % 22.400 0-43.6000 MID% (test code = MID%) 17.8000 % .1999- Neutrophils % (test code = Neutrophils %) 53.1000 % 48.900 0-69.9000 Lymphocytes (test code = Lymphocytes) 0.4000 1.2000-3.2 000 MID (test code = MID) 0.3000 0.1000-1.1000 Neutrophils (test code = Neutrophils) 0.8000 1.5000-6.7 000 RBC (test code = RBC) 3.1800 3.7000-4.9000 HGB (test code = HGB) 9.8000 g/dL 11.1999-18.0000 HCT (test code = HCT) 28.2000 % 34.0000-44.0000 MCV (test code = MCV) 88.5000 fL 80.0000-94.0000 MCH (test code = MCH) 31.0000 pg 27.0000-34.0000 MCHC (test code = MCHC) 35.0000 g/dL 31.5000-36.0000 RDW (test code = RDW) 17.0000 11.0000-18.0000 PLT (test code = PLT) 268.0000 140.0000-440.0000 MPV (test code = MPV) 7.0000 fL 6.8000-10.6000 [id number] 08:20:00 Test Item Value Reference Range Comments WBC (test code = WBC) 1.0000 4.0000-10.0000 Lymphocytes % (test code = Lymphocytes %) 26.1000 % 22.400 0-43.6000 MID% (test code = MID%) 7.8000 % - Neutrophils % (test code = Neutrophils %) 66.1000 % 48.900 0-69.9000 Lymphocytes (test code = Lymphocytes) 0.2000 1.2000-3.2 000 MID (test code = MID) 0.1000 0.1000-1.1000 Neutrophils (test code = Neutrophils) 0.7000 1.5000-6.7 000 RBC (test code = RBC) 3.3600 3.7000-4.9000 HGB (test code = HGB) 9.9000 g/dL 11.2000-18.0000 HCT (test code = HCT) 29.7000 % 34.0000-44.0000 MCV (test code = MCV) 88.4000 fL 80.0000-94.0000 MCH (test code = MCH) 29.6000 pg 27.0000-34.0000 MCHC (test code = MCHC) 33.5000 g/dL 31.5000-36.0000 RDW (test code = RDW) 16.6000 11.0000-18.0000 PLT (test code = PLT) 242.0000 140.0000-440.0000 MPV (test code = MPV) 6.9000 fL 6.8000-10.6000 U [id number] 14:37:00 Test Item Value Reference Range Comments U Color (test code = U Color) Yellow U Urobilinogen (test code = U Urobilinogen) 0.2 U Specific Dyer (test code = U Specific 1.0150 Dyer) U Appearance (test code = U Appearance) Clear U Glucose (test code = U Glucose) Negative U Bilirubin (test code = U Bilirubin) Negative U Ketones (test code = U Ketones) Negative U Blood (test code = U Blood) Trace-inta U pH (test code = U pH) 7.0000 5.0000-8.0000 U Protein (test code = U Protein) Negative U Nitrite (test code = U Nitrite) Negative U Leuk Esterase (test code = U Leuk Esterase) Negative [id number] 13:36:00 Test Item Value Reference Range Comments WBC (test code = WBC) 1.1999 4.0000-10.0000 Lymphocytes % (test code = Lymphocytes %) 24.5000 % 22.400 0-43.6000 MID% (test code = MID%) 7.7000 % 1.2000-11.1999 Neutrophils % (test code = Neutrophils %) 67.8000 % 48.900 0-69.9000 Lymphocytes (test code = Lymphocytes) 0.3000 1.2000-3.2 000 MID (test code = MID) 0.1000 0.1000-1.1000 Neutrophils (test code = Neutrophils) 0.8000 1.5000-6.7 000 RBC (test code = RBC) 3.2600 3.7000-4.9000 HGB (test code = HGB) 9.9000 g/dL 11.2000-18.0000 HCT (test code = HCT) 28.6000 % 34.0000-44.0000 MCV (test code = MCV) 87.8000 fL 80.0000-94.0000 MCH (test code = MCH) 30.5000 pg 27.0000-34.0000 MCHC (test code = MCHC) 34.8000 g/dL 31.5000-36.0000 RDW (test code = RDW) 16.5000 11.0000-18.0000 PLT (test code = PLT) 221.0000 140.0000-440.0000 MPV (test code = MPV) 6.8000 fL 6.8000-10.6000 [id number] 09:05:00 Test Item Value Reference Range Comments WBC (test code = WBC) 1.1000 4.0000-10.0000 Lymphocytes % (test code = Lymphocytes %) 22.2000 % 22.400 0-43.6000 MID% (test code = MID%) 6.0000 % 1.2000-11.2000 Neutrophils % (test code = Neutrophils %) 71.8000 % 48.900 0-69.9000 Lymphocytes (test code = Lymphocytes) 0.2000 1.2000-3.2 000 MID (test code = MID) 0.1000 0.1000-1.1000 Neutrophils (test code = Neutrophils) 0.8000 1.5000-6.7 000 RBC (test code = RBC) 3.6100 3.7000-4.9000 HGB (test code = HGB) 10.3000 g/dL 11.2000-18.0000 HCT (test code = HCT) 31.6000 % 34.0000-44.0000 MCV (test code = MCV) 87.4000 fL 80.0000-94.0000 MCH (test code = MCH) 28.6000 pg 27.0000-34.0000 MCHC (test code = MCHC) 32.7000 g/dL 31.5000-36.0000 RDW (test code = RDW) 16.2000 11.0000-18.0000 PLT (test code = PLT) 218.0000 140.0000-440.0000 MPV (test code = MPV) 7.3000 fL 6.8000-10.6000 [id number] 08:12:00 Test Item Value Reference Range Comments WBC (test code = WBC) 1.2000 4.0000-10.0000 Lymphocytes % (test code = Lymphocytes %) 17.5000 % 22.400 0-43.6000 MID% (test code = MID%) 5.5000 % 1.1999-11 Neutrophils % (test code = Neutrophils %) 77.0000 % 48.900 0-69.9000 Lymphocytes (test code = Lymphocytes) 0.2000 1.2000-3.2 000 MID (test code = MID) 0.1000 0.1000-1.1000 Neutrophils (test code = Neutrophils) 0.9000 1.5000-6.7 000 RBC (test code = RBC) 3.1600 3.7000-4.9000 HGB (test code = HGB) 9.4000 g/dL 11.2000-18.0000 HCT (test code = HCT) 27.1000 % 34.0000-44.0000 MCV (test code = MCV) 85.5000 fL 80.0000-94.0000 MCH (test code = MCH) 29.8000 pg 27.0000-34.0000 MCHC (test code = MCHC) 34.8000 g/dL 31.5000-36.0000 RDW (test code = RDW) 15.1000 11.0000-18.0000 PLT (test code = PLT) 143.0000 140.0000-440.0000 MPV (test code = MPV) 7.0000 fL 6.8000-10.6000 [id number] 11:33:00 Test Item Value Reference Range Comments WBC (test code = WBC) 1.8000 4.0000-10.0000 Lymphocytes % (test code = Lymphocytes %) 19.5000 % 22.400 0-43.6000 MID% (test code = MID%) 4.6000 % .1999- Neutrophils % (test code = Neutrophils %) 75.9000 % 48.900 0-69.9000 Lymphocytes (test code = Lymphocytes) 0.3000 1.2000-3.2 000 MID (test code = MID) 0.2000 0.1000-1.1000 Neutrophils (test code = Neutrophils) 1.3000 1.5000-6.7 000 RBC (test code = RBC) 3.8000 3.7000-4.9000 HGB (test code = HGB) 10.5000 g/dL 11.2000-18.0000 HCT (test code = HCT) 32.9000 % 34.0000-44.0000 MCV (test code = MCV) 86.5000 fL 80.0000-94.0000 MCH (test code = MCH) 27.7000 pg 27.0000-34.0000 MCHC (test code = MCHC) 32.0000 g/dL 31.5000-36.0000 RDW (test code = RDW) 15.9000 11.0000-18.0000 PLT (test code = PLT) 177.0000 140.0000-440.0000 MPV (test code = MPV) 7.8000 fL 6.8000-10.6000 [id number] 11:33:00 Test Item Value Reference Range Comments MID% (test code = MID%) 4.6000 % 1.2000-11.2000 Neutrophils % (test code = Neutrophils %) 75.9000 % 48.900 0-69.9000 HCT (test code = HCT) 32.9000 % 34.0000-44.0000 Lymphocytes % (test code = Lymphocytes %) 19.5000 % 22.400 0-43.6000 RDW (test code = RDW) 15.9000 11.0000-18.0000 HGB (test code = HGB) 10.5000 g/dL 11.2000-18.0000 MID (test code = MID) 0.2000 0.1000-1.1000 WBC (test code = WBC) 1.8000 4.0000-10.0000 MCV (test code = MCV) 86.5000 fL 80.0000-94.0000 MCHC (test code = MCHC) 32.0000 g/dL 31.5000-36.0000 MCH (test code = MCH) 27.7000 pg 27.0000-34.0000 MPV (test code = MPV) 7.8000 fL 6.8000-10.6000 PLT (test code = PLT) 177.0000 140.0000-440.0000 RBC (test code = RBC) 3.8000 3.7000-4.9000 Neutrophils (test code = Neutrophils) 1.3000 1.5000-6.7 000 Lymphocytes (test code = Lymphocytes) 0.3000 1.2000-3.2 000 [id number] 13:34:00 Test Item Value Reference Range Comments WBC (test code = WBC) 3.1000 4.0000-10.0000 Lymphocytes % (test code = Lymphocytes %) 15.5000 % 22.400 0-43.6000 MID% (test code = MID%) 5.3000 % 1.2000-11.2000 Neutrophils % (test code = Neutrophils %) 79.2000 % 48.900 0-69.9000 Lymphocytes (test code = Lymphocytes) 0.4000 1.2000-3.2 000 MID (test code = MID) 0.2000 0.1000-1.1000 Neutrophils (test code = Neutrophils) 2.5000 1.5000-6.7 000 RBC (test code = RBC) 3.6300 3.7000-4.9000 HGB (test code = HGB) 10.6000 g/dL 11.1999-18.0000 HCT (test code = HCT) 31.7000 % 34.0000-44.0000 MCV (test code = MCV) 87.1000 fL 80.0000-94.0000 MCH (test code = MCH) 29.1999 pg 27.0000-34.0000 MCHC (test code = MCHC) 33.6000 g/dL 31.5000-36.0000 RDW (test code = RDW) 15.1999 11.0000-18.0000 PLT (test code = PLT) 180.0000 140.0000-440.0000 MPV (test code = MPV) 7.3000 fL 6.8000-10.6000 [id number] 13:34:00 Test Item Value Reference Range Comments Lymphocytes (test code = Lymphocytes) 0.4000 1.2000-3.2 000 Neutrophils (test code = Neutrophils) 2.5000 1.5000-6.7 000 PLT (test code = PLT) 180.0000 140.0000-440.0000 RBC (test code = RBC) 3.6300 3.7000-4.9000 MPV (test code = MPV) 7.3000 fL 6.8000-10.6000 MCH (test code = MCH) 29.1999 pg 27.0000-34.0000 MCV (test code = MCV) 87.1000 fL 80.0000-94.0000 MID (test code = MID) 0.2000 0.1000-1.1000 MCHC (test code = MCHC) 33.6000 g/dL 31.5000-36.0000 WBC (test code = WBC) 3.1000 4.0000-10.0000 HGB (test code = HGB) 10.6000 g/dL 11.2000-18.0000 RDW (test code = RDW) 15.1999 11.0000-18.0000 Lymphocytes % (test code = Lymphocytes %) 15.5000 % 22.400 0-43.6000 HCT (test code = HCT) 31.7000 % 34.0000-44.0000 MID% (test code = MID%) 5.3000 % 1.1999-11.1999 Neutrophils % (test code = Neutrophils %) 79.2000 % 48.900 0-69.9000 [id number] 13:51:00 Test Item Value Reference Range Comments WBC (test code = WBC) 3.7000 4.0000-10.0000 Lymphocytes % (test code = Lymphocytes %) 16.7000 % 22.400 0-43.6000 MID% (test code = MID%) 5.5000 % 1.1999-11.1999 Neutrophils % (test code = Neutrophils %) 77.8000 % 48.900 0-69.9000 Lymphocytes (test code = Lymphocytes) 0.6000 1.2000-3.2 000 MID (test code = MID) 0.2000 0.1000-1.1000 Neutrophils (test code = Neutrophils) 2.9000 1.5000-6.7 000 RBC (test code = RBC) 3.7800 3.7000-4.9000 HGB (test code = HGB) 11.0000 g/dL 11.2000-18.0000 HCT (test code = HCT) 33.1000 % 34.0000-44.0000 MCV (test code = MCV) 87.5000 fL 80.0000-94.0000 MCH (test code = MCH) 29.2000 pg 27.0000-34.0000 MCHC (test code = MCHC) 33.3000 g/dL 31.5000-36.0000 RDW (test code = RDW) 14.8000 11.0000-18.0000 PLT (test code = PLT) 303.0000 140.0000-440.0000 MPV (test code = MPV) 7.4000 fL 6.8000-10.6000 [id number] 13:51:00 Test Item Value Reference Range Comments MCH (test code = MCH) 29.2000 pg 27.0000-34.0000 Neutrophils % (test code = Neutrophils %) 77.8000 % 48.900 0-69.9000 MID% (test code = MID%) 5.5000 % .1999- Lymphocytes % (test code = Lymphocytes %) 16.7000 % 22.400 0-43.6000 HCT (test code = HCT) 33.1000 % 34.0000-44.0000 RDW (test code = RDW) 14.8000 11.0000-18.0000 HGB (test code = HGB) 11.0000 g/dL 11.1999-18.0000 MCHC (test code = MCHC) 33.3000 g/dL 31.5000-36.0000 MID (test code = MID) 0.2000 0.1000-1.1000 MCV (test code = MCV) 87.5000 fL 80.0000-94.0000 MPV (test code = MPV) 7.4000 fL 6.8000-10.6000 RBC (test code = RBC) 3.7800 3.7000-4.9000 PLT (test code = PLT) 303.0000 140.0000-440.0000 Lymphocytes (test code = Lymphocytes) 0.6000 1.2000-3.2 000 WBC (test code = WBC) 3.7000 4.0000-10.0000 Neutrophils (test code = Neutrophils) 2.9000 1.5000-6.7 000 [id number] 08:04:31 Test Item Value Reference Range Comments Creatinine (test code = Creatinine) 0.6500 mg/dL 0.5000-1.500 0 Cr Clearance (Est) (test code = Cr Clearance 93.8200 75. 0000-115.0000 (Est)) [id number] 14:23:00 Test Item Value Reference Range Comments RDW (test code = RDW) 14.5000 11.0000-18.0000 HCT (test code = HCT) 34.8000 % 34.0000-44.0000 Lymphocytes % (test code = Lymphocytes %) 21.1000 % 22.400 0-43.6000 Neutrophils % (test code = Neutrophils %) 73.4000 % 48.900 0-69.9000 MID% (test code = MID%) 5.5000 % .1999- MCH (test code = MCH) 29.4000 pg 27.0000-34.0000 MCV (test code = MCV) 87.1000 fL 80.0000-94.0000 MPV (test code = MPV) 7.8000 fL 6.8000-10.6000 MCHC (test code = MCHC) 33.7000 g/dL 31.5000-36.0000 HGB (test code = HGB) 11.7000 g/dL 11.2000-18.0000 MID (test code = MID) 0.4000 0.1000-1.1000 WBC (test code = WBC) 6.1999 4.0000-10.0000 Lymphocytes (test code = Lymphocytes) 1.3000 1.2000-3.2 000 PLT (test code = PLT) 405.0000 140.0000-440.0000 Neutrophils (test code = Neutrophils) 4.5000 1.5000-6.7 000 RBC (test code = RBC) 3.9900 3.7000-4.9000 [id number] 14:23:00 Test Item Value Reference Range Comments WBC (test code = WBC) 6.2000 4.0000-10.0000 Lymphocytes % (test code = Lymphocytes %) 21.1000 % 22.400 0-43.6000 MID% (test code = MID%) 5.5000 % 1.2000-11.2000 Neutrophils % (test code = Neutrophils %) 73.4000 % 48.900 0-69.9000 Lymphocytes (test code = Lymphocytes) 1.3000 1.2000-3.2 000 MID (test code = MID) 0.4000 0.1000-1.1000 Neutrophils (test code = Neutrophils) 4.5000 1.5000-6.7 000 RBC (test code = RBC) 3.9900 3.7000-4.9000 HGB (test code = HGB) 11.7000 g/dL 11.2000-18.0000 HCT (test code = HCT) 34.8000 % 34.0000-44.0000 MCV (test code = MCV) 87.1000 fL 80.0000-94.0000 MCH (test code = MCH) 29.4000 pg 27.0000-34.0000 MCHC (test code = MCHC) 33.7000 g/dL 31.5000-36.0000 RDW (test code = RDW) 14.5000 11.0000-18.0000 PLT (test code = PLT) 405.0000 140.0000-440.0000 MPV (test code = MPV) 7.8000 fL 6.8000-10.6000 [id number] 12:27:00 Test Item Value Reference Range Comments PLT (test code = PLT) 415.0000 140.0000-440.0000 RBC (test code = RBC) 3.7800 3.7000-4.9000 Neutrophils (test code = Neutrophils) 4.6000 1.5000-6.7 000 Lymphocytes (test code = Lymphocytes) 1.5000 1.2000-3.2 000 WBC (test code = WBC) 6.5000 4.0000-10.0000 MID (test code = MID) 0.4000 0.1000-1.1000 HGB (test code = HGB) 10.5000 g/dL 11.1999-18.0000 MCHC (test code = MCHC) 31.4000 g/dL 31.5000-36.0000 MCV (test code = MCV) 88.4000 fL 80.0000-94.0000 MPV (test code = MPV) 7.5000 fL 6.8000-10.6000 MCH (test code = MCH) 27.8000 pg 27.0000-34.0000 Neutrophils % (test code = Neutrophils %) 70.9000 % 48.900 0-69.9000 MID% (test code = MID%) 5.3000 % .1999-11.1999 HCT (test code = HCT) 33.5000 % 34.0000-44.0000 Lymphocytes % (test code = Lymphocytes %) 23.8000 % 22.400 0-43.6000 RDW (test code = RDW) 15.3000 11.0000-18.0000 [id number] 12:27:00 Test Item Value Reference Range Comments WBC (test code = WBC) 6.5000 4.0000-10.0000 Lymphocytes % (test code = Lymphocytes %) 23.8000 % 22.400 0-43.6000 MID% (test code = MID%) 5.3000 % .2000-11.1999 Neutrophils % (test code = Neutrophils %) 70.9000 % 48.900 0-69.9000 Lymphocytes (test code = Lymphocytes) 1.5000 1.2000-3.2 000 MID (test code = MID) 0.4000 0.1000-1.1000 Neutrophils (test code = Neutrophils) 4.6000 1.5000-6.7 000 RBC (test code = RBC) 3.7800 3.7000-4.9000 HGB (test code = HGB) 10.5000 g/dL 11.2000-18.0000 HCT (test code = HCT) 33.5000 % 34.0000-44.0000 MCV (test code = MCV) 88.4000 fL 80.0000-94.0000 MCH (test code = MCH) 27.8000 pg 27.0000-34.0000 MCHC (test code = MCHC) 31.4000 g/dL 31.5000-36.0000 RDW (test code = RDW) 15.3000 11.0000-18.0000 PLT (test code = PLT) 415.0000 140.0000-440.0000 MPV (test code = MPV) 7.5000 fL 6.8000-10.6000 [id number] 09:41:00 Test Item Value Reference Range Comments RDW (test code = RDW) 14.5000 11.0000-18.0000 HCT (test code = HCT) 28.4000 % 34.0000-44.0000 Lymphocytes % (test code = Lymphocytes %) 16.1000 % 22.400 0-43.6000 MID% (test code = MID%) 4.6000 % 1.2000-11.2000 Neutrophils % (test code = Neutrophils %) 79.3000 % 48.900 0-69.9000 MCH (test code = MCH) 29.7000 pg 27.0000-34.0000 MPV (test code = MPV) 7.4000 fL 6.8000-10.6000 MCV (test code = MCV) 89.8000 fL 80.0000-94.0000 MCHC (test code = MCHC) 33.0000 g/dL 31.5000-36.0000 HGB (test code = HGB) 9.4000 g/dL 11.2000-18.0000 MID (test code = MID) 0.3000 0.1000-1.1000 WBC (test code = WBC) 6.8000 4.0000-10.0000 Lymphocytes (test code = Lymphocytes) 1.1000 1.2000-3.2 000 Neutrophils (test code = Neutrophils) 5.4000 1.5000-6.7 000 PLT (test code = PLT) 452.0000 140.0000-440.0000 RBC (test code = RBC) 3.1600 3.7000-4.9000 [id number] 09:41:00 Test Item Value Reference Range Comments WBC (test code = WBC) 6.8000 4.0000-10.0000 Lymphocytes % (test code = Lymphocytes %) 16.1000 % 22.400 0-43.6000 MID% (test code = MID%) 4.6000 % 1.2000-11.2000 Neutrophils % (test code = Neutrophils %) 79.3000 % 48.900 0-69.9000 Lymphocytes (test code = Lymphocytes) 1.1000 1.2000-3.2 000 MID (test code = MID) 0.3000 0.1000-1.1000 Neutrophils (test code = Neutrophils) 5.4000 1.5000-6.7 000 RBC (test code = RBC) 3.1600 3.7000-4.9000 HGB (test code = HGB) 9.4000 g/dL 11.2000-18.0000 HCT (test code = HCT) 28.4000 % 34.0000-44.0000 MCV (test code = MCV) 89.8000 fL 80.0000-94.0000 MCH (test code = MCH) 29.7000 pg 27.0000-34.0000 MCHC (test code = MCHC) 33.0000 g/dL 31.5000-36.0000 RDW (test code = RDW) 14.5000 11.0000-18.0000 PLT (test code = PLT) 452.0000 140.0000-440.0000 MPV (test code = MPV) 7.4000 fL 6.8000-10.6000 Encounters Start End Encounter Admission Attending Care Care Encounter Date/Time Date/Time Type Type Clinicians Facility Department ID 2020-10-01 2020-10-01 Outpatient Maddy Rodriguez rn [id number] 00:00:00 00:00:00 [facility] 2020-09-30 2020-09-30 Outpatient Maddy Rodriguez rn [id number] 00:00:00 00:00:00 [facility] 2020-09-29 2020-09-29 Outpatient Maddy Rodriguez rn [id number] 00:00:00 00:00:00 [facility] 2020-09-28 2020-09-28 Outpatient Maddy Rodriguez rn [id number] 00:00:00 00:00:00 [facility] [place] 2020-09-27 2020-09-27 PaulMichael [facility] [id number] 00:00:00 00:00:00 Joan [facility] [place] 2020-09-23 2020-09-23 Outpatient Maddy Rodriguez Les[facility] rn [id number] 00:00:00 00:00:00 [facility] [place] 2020-09-22 2020-09-22 Outpatient Maddy Rodriguez Lesley rn [id number] 00:00:00 00:00:00 [facility] [place] 2020-09-21 2020-09-21 Michaelotis [facility] [id number] 00:00:00 00:00:00 Dr. Cho [facility] Oncology [facility] [place] 2020-09-20 2020-09-20 Outpatient YoniloganMaddy rn [id number] 00:00:00 00:00:00 [facility] [place] 2020-09-17 2020-09-17 Outpatient Maddy Rodriguez Lesley rn [id number] 00:00:00 00:00:00 [facility] [place] 2020-09-16 2020-09-16 Outpatient Last Rodrigueztaras [place] rn [id number] 00:00:00 00:00:00 [facility] [place] 2020-09-15 2020-09-15 Outpatient Maddy Rodriguez Lesley rn [id number] 00:00:00 00:00:00 [facility] [place] 2020-09-14 2020-09-14 Michael Rodriguez Maddy [facility] [id number] 00:00:00 00:00:00 Dr. Cho [facility] [place] 2020-09-10 2020-09-10 Outpatient Maddy Castañeda n [id number] 00:00:00 00:00:00 [facility] [place] 2020-09-08 2020-09-08 Outpatient YoniMaddy ford [place] rn [id number] 00:00:00 00:00:00 [facility] [place] 2020-09-07 2020-09-07 [facility] Maddy [place] rn [id number] 00:00:00 00:00:00 nicolas Fariha [facility] [place] 2020-09-01 2020-09-01 Outpatient MichaelotisMaddy rn [id number] 00:00:00 00:00:00 [facility] [place] 2020-08-31 2020-08-31 Maddy Rodriguez [id number] 00:00:00 00:00:00 [facility] [place] 2020-08-25 2020-08-25 Outpatient MichaelotisMaddy rn [id number] 00:00:00 00:00:00 [facility] [place] 2020-08-24 2020-08-24 Michael Peralta [facility] [id number] 00:00:00 00:00:00 [place] [place] 2020-08-23 2020-08-23 Outpatient Maddy Castañeda n [id number] 00:00:00 00:00:00 [facility] [place] 2020-08-19 2020-08-19 Outpatient MichaelotisMaddy rn [id number] 00:00:00 00:00:00 [facility] [place] 2020-08-18 2020-08-18 Outpatient Maddy Rodriguez rn [id number] 00:00:00 00:00:00 [facility] [place] 2020-08-17 2020-08-17 Michael Peralta [facility] [id number] 00:00:00 00:00:00 [place] [facility] [place] 2020-08-12 2020-08-12 Outpatient Maddy Rodriguez rn [id number] 00:00:00 00:00:00 [facility] [place] 2020-08-05 2020-08-05 Michael Peralta [facility] [id number] 00:00:00 00:00:00 [place] [facility] [place] 2020-08-03 2020-08-03 Outpatient Maddy Castañeda n [id number] 00:00:00 00:00:00 [facility] [place] 2020-07-30 2020-07-30 Outpatient Maddy Castañeda n [id number] 00:00:00 00:00:00 [facility] 2020-07-27 2020-07-27 Outpatient Maddy Castañeda n [id number] 00:00:00 00:00:00 [facility] Social History Smoking Status Start Date Stop Date Never 2020-09-27 00:00:00 Social History Observation Description Sex Female Vital Signs Vital Name Observation Time Observation Value Comments Bdy height 2020-09-30 11:39:39 66.0000 [in_i] Weight 2020-09-30 11:39:39 138.0000 [lb_av] BMI 2020-09-30 11:39:39 22.2700 BMI 2020-09-27 12:23:27 22.3100 BP puga 2020-09-27 12:23:27 57.0000 mm[Hg] Bdy height 2020-09-27 12:23:27 66.0000 [in_i] SaO2% BldA PulseOx 2020-09-27 12:23:27 98.0000 % Heart rate 2020-09-27 12:23:27 94.0000 /min Resp rate 2020-09-27 12:23:27 20.0000 /min BP sys 2020-09-27 12:23:27 94.0000 mm[Hg] Body temperature 2020-09-27 12:23:27 97.2000 [degF] Weight 2020-09-27 12:23:27 138.2000 [lb_av] Bdy height 2020-09-23 08:38:42 66.0000 [in_i] Body temperature 2020-09-23 08:38:42 97.0000 [degF] BMI 2020-09-21 13:49:36 22.1100 BP puga 2020-09-21 13:49:36 67.0000 mm[Hg] Bdy height 2020-09-21 13:49:36 66.0000 [in_i] SaO2% BldA PulseOx 2020-09-21 13:49:36 98.0000 % Heart rate 2020-09-21 13:49:36 97.0000 /min Resp rate 2020-09-21 13:49:36 14.0000 /min BP sys 2020-09-21 13:49:36 110.0000 mm[Hg] Body temperature 2020-09-21 13:49:36 97.2000 [degF] Weight 2020-09-21 13:49:36 137.0000 [lb_av] Bdy height 2020-09-20 09:14:49 66.0000 [in_i] Body temperature 2020-09-20 09:14:49 97.1000 [degF] Bdy height 2020-09-17 15:06:25 66.0000 [in_i] Body temperature 2020-09-17 15:06:25 97.3000 [degF] BMI 2020-09-14 11:48:56 21.9200 BP puga 2020-09-14 11:48:56 68.0000 mm[Hg] Bdy height 2020-09-14 11:48:56 66.0000 [in_i] SaO2% BldA PulseOx 2020-09-14 11:48:56 98.0000 % Heart rate 2020-09-14 11:48:56 95.0000 /min Resp rate 2020-09-14 11:48:56 18.0000 /min BP sys 2020-09-14 11:48:56 100.0000 mm[Hg] Body temperature 2020-09-14 11:48:56 98.2000 [degF] Weight 2020-09-14 11:48:56 135.8000 [lb_av] BMI 2020-09-07 13:45:39 22.0200 BP puga 2020-09-07 13:45:39 81.0000 mm[Hg] Bdy height 2020-09-07 13:45:39 66.0000 [in_i] SaO2% BldA PulseOx 2020-09-07 13:45:39 98.0000 % Heart rate 2020-09-07 13:45:39 93.0000 /min Resp rate 2020-09-07 13:45:39 18.0000 /min BP sys 2020-09-07 13:45:39 126.0000 mm[Hg] Body temperature 2020-09-07 13:45:39 97.4000 [degF] Weight 2020-09-07 13:45:39 136.4000 [lb_av] Bdy height 2020-08-31 14:06:03 66.0000 [in_i] SaO2% BldA PulseOx 2020-08-31 14:06:03 98.0000 % Heart rate 2020-08-31 14:06:03 97.0000 /min Resp rate 2020-08-31 14:06:03 16.0000 /min BP sys 2020-08-31 14:06:03 113.0000 mm[Hg] Body temperature 2020-08-31 14:06:03 98.0000 [degF] Weight 2020-08-31 14:06:03 136.6000 [lb_av] BMI 2020-08-31 14:06:03 22.0500 BP puga 2020-08-31 14:06:03 73.0000 mm[Hg] BMI 2020-08-24 13:43:08 22.1400 BP puga 2020-08-24 13:43:08 58.0000 mm[Hg] Bdy height 2020-08-24 13:43:08 66.0000 [in_i] SaO2% BldA PulseOx 2020-08-24 13:43:08 98.0000 % Heart rate 2020-08-24 13:43:08 104.0000 /min Resp rate 2020-08-24 13:43:08 18.0000 /min BP sys 2020-08-24 13:43:08 102.0000 mm[Hg] Body temperature 2020-08-24 13:43:08 97.9000 [degF] Weight 2020-08-24 13:43:08 137.2000 [lb_av] BMI 2020-08-17 13:22:39 22.4000 BP puga 2020-08-17 13:22:39 78.0000 mm[Hg] Bdy height 2020-08-17 13:22:39 66.0000 [in_i] SaO2% BldA PulseOx 2020-08-17 13:22:39 98.0000 % Heart rate 2020-08-17 13:22:39 72.0000 /min Resp rate 2020-08-17 13:22:39 18.0000 /min BP sys 2020-08-17 13:22:39 130.0000 mm[Hg] Body temperature 2020-08-17 13:22:39 98.0000 [degF] Weight 2020-08-17 13:22:39 138.8000 [lb_av] BMI 2020-08-17 13:19:54 22.4000 Bdy height 2020-08-17 13:19:54 66.0000 [in_i] Heart rate 2020-08-17 13:19:54 72.0000 /min Resp rate 2020-08-17 13:19:54 18.0000 /min BP sys 2020-08-17 13:19:54 13.0000 mm[Hg] Body temperature 2020-08-17 13:19:54 98.0000 [degF] Weight 2020-08-17 13:19:54 138.8000 [lb_av] BP puga 2020-08-05 08:46:42 77.0000 mm[Hg] Bdy height 2020-08-05 08:46:42 66.0000 [in_i] SaO2% BldA PulseOx 2020-08-05 08:46:42 99.0000 % Heart rate 2020-08-05 08:46:42 71.0000 /min Resp rate 2020-08-05 08:46:42 18.0000 /min BP sys 2020-08-05 08:46:42 144.0000 mm[Hg] Body temperature 2020-08-05 08:46:42 97.6000 [degF] Weight 2020-08-05 08:46:42 140.0000 [lb_av] BMI 2020-08-05 08:46:42 22.6000
== END 2020-10-01 10:30 | disposition home or self-care (01) ==
LOC: II 08:17 → 5TH 08:20 → II 10:30
PROVIDERS: ATTEND Internal Medicine
DX: Z51.11 Encounter for antineoplastic chemotherapy (principal); C53.0 Malignant neoplasm of endocervix
CPT/HCPCS: 96413; 96367; J9045; J2405; J7050; J1100

== ENCOUNTER 2020-10-08 11:45 | Outpatient (CLI) | payer OTHER ==
[2020-10-08 12:21] VITALS: BP 113/66
== END 2020-10-08 13:48 | disposition home or self-care (01) ==
LOC: II 11:45 → 5TH 11:46 → II 13:48
PROVIDERS: ATTEND Internal Medicine
DX: Z51.11 Encounter for antineoplastic chemotherapy (principal); C53.0 Malignant neoplasm of endocervix
CPT/HCPCS: 96367; 96413; J1100; J2405; J7050; J9045

== ENCOUNTER 2020-10-13 10:48 | Outpatient (CLI) | payer OTHER ==
[2020-10-13] MEDS ORDERED: NORMAL SALINE 1000 ML 1,000 ML IV PRN (10:50)
[2020-10-13 11:08] VITALS: BP 92/51
== END 2020-10-13 12:15 | disposition home or self-care (01) ==
LOC: II 10:48 → 5TH 11:13 → II 12:15
PROVIDERS: ATTEND Internal Medicine
DX: C53.0 Malignant neoplasm of endocervix (principal)
CPT/HCPCS: 96360

== ENCOUNTER 2020-10-15 08:58 | Outpatient (CLI) | payer OTHER ==
[2020-10-15] MEDS ORDERED: NORMAL SALINE 1000 ML @ AS DIRECTED IV PRN (09:12)
[2020-10-15] MEDS ORDERED: DEXAMETH 10 MG/ONDANSETRON 16 MG in NS 50 ML IV PRN ×3 (09:12)
[2020-10-15] MEDS ORDERED: CARBOPLATIN IV PRN (09:14)
[2020-10-15] MEDS ORDERED: NORMAL SALINE IV PRN (09:14)
[2020-10-15 09:36] VITALS: BP 134/81
== END 2020-10-15 11:30 | disposition home or self-care (01) ==
LOC: II 08:58 → 5TH 09:04 → II 11:30
PROVIDERS: ATTEND Internal Medicine
DX: Z51.11 Encounter for antineoplastic chemotherapy (principal); C53.0 Malignant neoplasm of endocervix
CPT/HCPCS: 96413; 96367; J9045; J2405; J7050; J1100

== ENCOUNTER 2020-11-03 10:36 | Outpatient (CLI) | payer OTHER ==
[~2020-11-03 10:36] MED LIST changes: -CARBOPLATIN IV PRN; -DEXAMETH 10 MG/ONDANSETRON 16 MG in NS 50 ML IV PRN; +NORMAL SALINE 1000 ML 1,000 ML IV PRN; -NORMAL SALINE 250 ML @ KVO IV PRN; -NORMAL SALINE IV PRN
[2020-11-03 10:59] VITALS: BP 134/70
[2020-11-03 12:19] LABS: ALBUMIN 3.8 g/dL (3.5-5.0); ALKALINE PHOSPHATASE 96 U/L (38-126); ANION GAP 7 (5-19); ASPARTATE AMINO TRANSFERASE 41 U/L (14-36); BILIRUBIN,TOTAL 0.3 mg/dL (0.2-1.3); BLOOD UREA NITROGEN 17 mg/dL (7-20); CARBON DIOXIDE 27 mmol/L (22-30); CHLORIDE 103 mmol/L (98-107); GLUCOSE 131 mg/dL (75-110); POTASSIUM 3.8 mmol/L (3.6-5.0); TOTAL PROTEIN 6.8 g/dL (6.3-8.2)
== END 2020-11-03 12:15 | disposition home or self-care (01) ==
LOC: II 10:36 → 5TH 10:41 → II 12:15
PROVIDERS: ATTEND Internal Medicine
DX: E86.0 Dehydration (principal); C53.0 Malignant neoplasm of endocervix
CPT/HCPCS: 80053; 96360

== ENCOUNTER 2020-11-04 08:22 | Outpatient (CLI) | payer OTHER ==
[2020-11-04 08:37] VITALS: BP 107/55
== END 2020-11-04 09:45 | disposition home or self-care (01) ==
LOC: II 08:22 → 5TH 08:24 → II 09:45
PROVIDERS: ATTEND Internal Medicine
DX: C53.0 Malignant neoplasm of endocervix (principal); E86.0 Dehydration
CPT/HCPCS: 96360

== ENCOUNTER 2020-11-05 08:09 | Outpatient (CLI) | payer OTHER ==
[2020-11-05] MEDS ORDERED: NORMAL SALINE 1000 ML 1,000 ML IV PRN (08:20)
[2020-11-05 08:30] VITALS: BP 111/54
== END 2020-11-05 09:31 | disposition home or self-care (01) ==
LOC: II 08:09 → 5TH 08:13 → II 09:31
PROVIDERS: ATTEND Internal Medicine
DX: E86.0 Dehydration (principal); C53.0 Malignant neoplasm of endocervix
CPT/HCPCS: 96360